=== PATIENT | male | born 1950 | race African-American/Black ===

== ENCOUNTER 2017-06-24 18:36 | Inpatient (IN) ==
[2017-06-24 20:05] LABS: Basophils # 0.1 10*3/uL (0.0-0.2); Basophils % 0.4 % (0.0-0.8); Eosinophils # 0.2 10*3/uL (0.0-0.87); Eosinophils % 1.6 % (0.00-10.9); Immature Granulocytes % 4.1 %; Immature Granulocytes Absolute 0.61 #; Lymphocytes # 1.2 10*3/uL (1.4-4.0); Lymphocytes % 8.2 % (21.2-54.2); Mean Corpuscular HGB Conc 31.5 GM/DL (32-36); Mean Corpuscular Hemoglobin 28 PG (27-34); Mean Corpuscular Volume 87.7 FL (87-102); Mean Platelet Volume 9.5 FL (9.6-12.0); Monocytes # 1.4 10*3/uL (0.11-0.8); Monocytes % 9.3 % (1.7-12.7); NRBC # 0.03 10*3/uL; Neutrophils # 11.3 10*3/uL (1.4-7.4); Neutrophils % 76.4 % (38.7-73.9); Red Blood Count 2.28 MC/CUMM (3.8-5.5); Red Cell Distribution Width 17.9 % (9.3-17.3); White Blood Count 14.8 T/CUMM (4-12)
[2017-06-24 20:10] LABS: INR 1.1; PT Patient Result 11.7 SECS; Partial Thromboplastin Time 30.6 SECS (0-40)
[2017-06-24 20:14] LABS: Hemoglobin 6.3 GM/DL (14.0-18.0); Platelet Count 1196 T/CUMM (130-400)
[2017-06-24 20:18] LABS: Ammonia < 10 UMOL/L (11-32); Lactic Acid 0.9 MMOL/L (0.4-2.0)
[2017-06-24 20:20] LABS: Alanine Aminotransferase 53 U/L (16-61); Albumin 2.8 G/DL (3.4-5.0); Alkaline Phosphatase 167 U/L (45-117); Aspartate Amino Transferase 24 U/L (0-37); Bilirubin,Total < 0.39 MG/DL (0.2-1.0); Blood Urea Nitrogen 81 MG/DL (7-18); Calcium 8.5 MG/DL (8.5-10.1); Glucose 103 MG/DL (74-106); Osmolality,Calculated 296.8 MOS/KG (273-304); Potassium 3.3 MMOL/L (3.5-5.1); Sodium 137 MMOL/L (136-145); Total Protein 6.7 G/DL (6.4-8.3)
[2017-06-24 20:22] LABS: Blood Urea Nitrogen 89 MG/DL (7-18)
[2017-06-24 20:28] LABS: Troponin I Only 0.031 NG/ML (0.00-0.045)
[2017-06-24 20:34] LABS: Anisocytosis 1+; Hypochromasia 2+
[2017-06-24 20:35] LABS: Elliptocytes Few; Platelet Estimate Increased; Schistocytes Few; Target Cells Few
[2017-06-24] MEDS ORDERED: ACETAMINOPHEN 325 MG TABLET PO PRN (22:22)
[2017-06-24] MEDS ORDERED: ONDANSETRON 4 MG/2 ML VIAL IV PRN (22:22)
[2017-06-24] MEDS ORDERED: hydrALAZINE 20 MG/1 ML VIAL IV PRN (22:29)
[2017-06-24] MEDS ORDERED: SODIUM CHLORIDE 0.9% 1,000 ML IV PRN (22:30)
[2017-06-25 07:53] LABS: Hematocrit 19.1 VOL% (42.0-52.0)
[2017-06-25 07:58] LABS: Hemoglobin 6.2 GM/DL (14.0-18.0)
[2017-06-25 08:05] LABS: Calcium 8.3 MG/DL (8.5-10.1); Osmolality,Calculated 301.5 MOS/KG (273-304); Potassium 3.5 MMOL/L (3.5-5.1)
[2017-06-25] MEDS ORDERED: SODIUM CHLORIDE 0.9% 1,000 ML IV PRN (08:12)
[2017-06-25] MEDS ORDERED: POTASSIUM CHLORIDE 20 MEQ TABLET PO ONE (08:14)
[2017-06-25] MEDS: LISINOPRIL 20 MG TABLET PO SCH ×2 (08:44→21:20)
[2017-06-25] MEDS: CALCIUM ACETATE 667 MG CAPSULE PO SCH ×3 (08:44→17:24)
[2017-06-25] MEDS: amLODIPine 10 MG TABLET PO SCH (08:45)
[2017-06-25] MEDS: PANTOPRAZOLE 40 MG TABLET PO SCH (08:45)
[2017-06-25 20:10] LABS: Hemoglobin 7.7 GM/DL (14.0-18.0)
[2017-06-26 05:25] LABS: Hematocrit 22.9 VOL% (42.0-52.0); Hemoglobin 7.6 GM/DL (14.0-18.0)
[2017-06-26] MEDS: CALCIUM ACETATE 667 MG CAPSULE PO SCH ×3 (10:46→17:29)
[2017-06-26] MEDS: amLODIPine 10 MG TABLET PO SCH (10:48)
[2017-06-26] MEDS: LISINOPRIL 20 MG TABLET PO SCH ×2 (10:48→21:35)
[2017-06-26] MEDS: PANTOPRAZOLE 40 MG TABLET PO SCH (10:50)
[2017-06-26] MEDS ORDERED: MAGNESIUM CITRATE 300 ML BOTTLE PO ONE (11:21)
[2017-06-26] MEDS ORDERED: SODIUM CHLORIDE 0.9% 1,000 ML IV PRN (18:51)
[2017-06-27] MEDS ORDERED: SODIUM CHLORIDE 0.9% 1,000 ML IV PRN (08:44)
[2017-06-27] MEDS: CALCIUM ACETATE 667 MG CAPSULE PO SCH ×3 (09:53→17:21)
[2017-06-27] MEDS: LISINOPRIL 20 MG TABLET PO SCH ×2 (09:53→21:33)
[2017-06-27] MEDS: amLODIPine 10 MG TABLET PO SCH (09:53)
[2017-06-27] MEDS: PANTOPRAZOLE 40 MG TABLET PO SCH (09:53)
[2017-06-27 10:32] LABS: Basophils # 0.1 10*3/uL (0.0-0.2); Basophils % 0.5 % (0.0-0.8); Eosinophils # 0.2 10*3/uL (0.0-0.87); Eosinophils % 1.5 % (0.00-10.9); Hematocrit 32.5 VOL% (42.0-52.0); Immature Granulocytes % 2.9 %; Immature Granulocytes Absolute 0.38 #; Lymphocytes # 0.8 10*3/uL (1.4-4.0); Lymphocytes % 5.8 % (21.2-54.2); Mean Corpuscular HGB Conc 33.8 GM/DL (32-36); Mean Corpuscular Hemoglobin 29 PG (27-34); Mean Corpuscular Volume 84.9 FL (87-102); Mean Platelet Volume 9.1 FL (9.6-12.0); Monocytes # 1.1 10*3/uL (0.11-0.8); Monocytes % 7.9 % (1.7-12.7); NRBC # 0.04 10*3/uL; Neutrophils # 10.8 10*3/uL (1.4-7.4); Neutrophils % 81.4 % (38.7-73.9); Platelet Count 907 T/CUMM (130-400); Red Blood Count 3.83 MC/CUMM (3.8-5.5); White Blood Count 13.3 T/CUMM (4-12)
[2017-06-28] MEDS: diphenhydrAMINE CAP 25 MG CAPSULE PO PRN ×2 (00:03→21:01)
[2017-06-28 02:36] LABS: Calcium 9.1 MG/DL (8.5-10.1); Osmolality,Calculated 297.2 MOS/KG (273-304)
[2017-06-28 02:58] LABS: Basophils # 0.1 10*3/uL (0.0-0.2); Basophils % 0.6 % (0.0-0.8); Eosinophils # 0.2 10*3/uL (0.0-0.87); Eosinophils % 1.7 % (0.00-10.9); Hematocrit 30.4 VOL% (42.0-52.0); Hemoglobin 10.2 GM/DL (14.0-18.0); Immature Granulocytes % 4.6 %; Immature Granulocytes Absolute 0.57 #; Lymphocytes # 0.9 10*3/uL (1.4-4.0); Lymphocytes % 7.1 % (21.2-54.2); Mean Corpuscular HGB Conc 33.6 GM/DL (32-36); Mean Corpuscular Hemoglobin 29 PG (27-34); Mean Corpuscular Volume 85.6 FL (87-102); Mean Platelet Volume 9.5 FL (9.6-12.0); Monocytes # 1.2 10*3/uL (0.11-0.8); Monocytes % 9.5 % (1.7-12.7); NRBC # 0.05 10*3/uL; Neutrophils # 9.5 10*3/uL (1.4-7.4); Neutrophils % 76.5 % (38.7-73.9); Platelet Count 836 T/CUMM (130-400); Red Blood Count 3.55 MC/CUMM (3.8-5.5); Red Cell Distribution Width 15.8 % (9.3-17.3); White Blood Count 12.5 T/CUMM (4-12)
[2017-06-28 08:04] LABS: Band Neutrophils 1 % (0-10); Hypochromasia 1+; Lymphocytes 3 % (20-55); Macrocytosis 1+; Platelet Estimate Increased; Segmented Neutrophils 90 % (50-85); Total Cells Counted 100
[2017-06-28] MEDS: LISINOPRIL 20 MG TABLET PO SCH ×2 (08:45→21:02)
[2017-06-28] MEDS: CALCIUM ACETATE 667 MG CAPSULE PO SCH ×3 (08:45→17:33)
[2017-06-28] MEDS: amLODIPine 10 MG TABLET PO SCH (08:45)
[2017-06-28] MEDS: PANTOPRAZOLE 40 MG TABLET PO SCH (08:45)
[2017-06-29] MEDS: LISINOPRIL 20 MG TABLET PO SCH ×2 (09:28→20:43)
[2017-06-29] MEDS: COLCHICINE 0.6 MG TABLET PO SCH (09:29)
[2017-06-29] MEDS: ASCORBIC ACID 500 MG TABLET PO SCH ×2 (09:29→20:43)
[2017-06-29] MEDS: CALCIUM ACETATE 667 MG CAPSULE PO SCH ×3 (09:29→17:02)
[2017-06-29] MEDS: PANTOPRAZOLE 40 MG TABLET PO SCH (09:29)
[2017-06-29] MEDS: amLODIPine 10 MG TABLET PO SCH (09:29)
[2017-06-29] MEDS ORDERED: LIDOCAINE 2% 5 ML VIAL ONE (11:09)
[2017-06-29] MEDS ORDERED: PROPOFOL 200 MG/20 ML VIAL IV ONE (11:09)
[2017-06-29] MEDS ORDERED: MAGNESIUM HYDROXIDE SUSP 30 ML UDCUP PO PRN (17:12)
[2017-06-29] MEDS: DOCUSATE SODIUM 100 MG CAPSULE PO SCH ×2 (17:40→20:44)
[2017-06-29] MEDS: diphenhydrAMINE CAP 25 MG CAPSULE PO PRN (20:43)
[2017-06-30 05:57] LABS: Basophils # 0.1 10*3/uL (0.0-0.2); Basophils % 0.5 % (0.0-0.8); Eosinophils # 0.2 10*3/uL (0.0-0.87); Eosinophils % 1.5 % (0.00-10.9); Hematocrit 33.1 VOL% (42.0-52.0); Hemoglobin 10.9 GM/DL (14.0-18.0); Immature Granulocytes % 4.1 %; Immature Granulocytes Absolute 0.64 #; Lymphocytes # 0.8 10*3/uL (1.4-4.0); Mean Corpuscular HGB Conc 32.9 GM/DL (32-36); Mean Corpuscular Hemoglobin 28 PG (27-34); Mean Corpuscular Volume 85.3 FL (87-102); Mean Platelet Volume 9.4 FL (9.6-12.0); Monocytes # 1.5 10*3/uL (0.11-0.8); Monocytes % 9.9 % (1.7-12.7); NRBC # 0.05 10*3/uL; Neutrophils # 12.4 10*3/uL (1.4-7.4); Platelet Count 865 T/CUMM (130-400); Red Blood Count 3.88 MC/CUMM (3.8-5.5); Red Cell Distribution Width 15.9 % (9.3-17.3); White Blood Count 15.6 T/CUMM (4-12)
[2017-06-30 06:21] LABS: Calcium 9.3 MG/DL (8.5-10.1); Osmolality,Calculated 298.1 MOS/KG (273-304); Potassium 4.2 MMOL/L (3.5-5.1)
[2017-06-30 06:29] LABS: Band Neutrophils 2 % (0-10); Giant Platelets Few; Hypochromasia 1+; Lymphocytes 8 % (20-55); Nucleated Red Blood Cells 1 (0-5); Platelet Estimate Increased; Segmented Neutrophils 82 % (50-85); Total Cells Counted 100
[2017-06-30 06:30] LABS: Macrocytosis Slight; Ovalocytes Slight; Polychromasia Slight
[2017-06-30] MEDS: LISINOPRIL 20 MG TABLET PO SCH (09:56)
[2017-06-30] MEDS: ASCORBIC ACID 500 MG TABLET PO SCH (09:57)
[2017-06-30] MEDS: amLODIPine 10 MG TABLET PO SCH (09:57)
[2017-06-30] MEDS: CALCIUM ACETATE 667 MG CAPSULE PO SCH ×3 (09:57→17:50)
[2017-06-30] MEDS: PANTOPRAZOLE 40 MG TABLET PO SCH (09:57)
[2017-06-30] MEDS: DOCUSATE SODIUM 100 MG CAPSULE PO SCH (09:57)
[2017-06-30] MEDS: COLCHICINE 0.6 MG TABLET PO SCH (09:57)
[2017-06-30 11:31] VITALS: BP 150/83
== END 2017-06-30 17:52 | disposition home or self-care (01) | DRG 811 ==
LOC: N.ED 18:36 → SUATTDRO 22:22 → N.EDINP 22:22 → N.5E 23:30
PROVIDERS: ADMIT Internal Medicine; ATTEND Internal Medicine